=== PATIENT | male | born 2000 | race Caucasian/White ===

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

== ENCOUNTER 2019-04-18 21:16 | Emergency (ER) | payer MEDICAID ==
[~2019-04-18] VITALS: Ht 185.4 cm; Wt 90.9 kg
[~2019-04-18 21:16] MED LIST changes: +CEPH-571 PO; -HYDR-4353 PO
[2019-04-18] MEDS ORDERED: cyclobenzaprine 10mg tablet PO ONE (21:50)
[2019-04-18] MEDS ORDERED: naproxen 500mg tablet PO ONE (21:50)
[2019-04-18] MEDS ORDERED: HYDROcodone/acetaminophen 10/325mg tab PO ONE (21:50)
--- NOTE | 2019-04-19 00:43 | NUR ---
report called to thi cortez
--- NOTE | 2019-04-19 00:53 | NUR ---
[facility] HAS AN ETA OF 20 MINUTES FOR TRANSPORT TO [facility]
[2019-04-19 01:05] VITALS: BP 133/73
== END 2019-04-19 01:05 | disposition short-term general hospital (02) ==
LOC: ER 21:17
DX: S39.92XA Unspecified injury of lower back, initial encounter (principal); S89.92XA Unspecified injury of left lower leg, initial encounter; S89.91XA Unspecified injury of right lower leg, initial encounter; R20.2 Paresthesia of skin; G43.909 Migraine, unspecified, not intractable, without status migrainosus; Z90.89 Acquired absence of other organs; Z98.890 Other specified postprocedural states; Z79.899 Other long term (current) drug therapy; X50.1XXA Overexertion from prolonged static or awkward postures, initial encounter; Y93.89 Activity, other specified; Y92.89 Other specified places as the place of occurrence of the external cause; Y99.8 Other external cause status
CPT/HCPCS: 72131; 99291

== ENCOUNTER 2022-04-09 21:30 | Emergency (ER) | payer MEDICAID ==
[~2022-04-09] VITALS: Ht 185.4 cm; Wt 106.5 kg
[~2022-04-09 21:30] MED LIST changes: -CEPH500C5 PO
--- NOTE | 2022-04-09 21:50 | NUR ---
DR ESPINAL AWARE OF PT'S CASE.
[2022-04-10] MEDS ORDERED: ibuprofen tablet 400 MG TABLET PO ONE (00:20)
[2022-04-10] MEDS ORDERED: orphenadrine citrate 60mg/2ml inj. IM ONE (00:20)
[2022-04-10] MEDS ORDERED: oxyCODONE/APAP 5-325mg tablet PO ONE (00:20)
[2022-04-10] MEDS ORDERED: HYDR-3973 PO (01:26)
[2022-04-10 01:33] VITALS: BP 139/85
== END 2022-04-10 01:35 | disposition home or self-care (01) ==
LOC: ER 21:30
DX: S20.229A Contusion of unspecified back wall of thorax, initial encounter (principal); G43.909 Migraine, unspecified, not intractable, without status migrainosus; Z87.81 Personal history of (healed) traumatic fracture; Z79.899 Other long term (current) drug therapy; Z79.1 Long term (current) use of non-steroidal anti-inflammatories (NSAID); Z79.2 Long term (current) use of antibiotics; Z98.890 Other specified postprocedural states; V98.8XXA Other specified transport accidents, initial encounter; Y93.89 Activity, other specified; Y92.89 Other specified places as the place of occurrence of the external cause; Y99.8 Other external cause status
CPT/HCPCS: 72131; 96372; 99284; J2360

== ENCOUNTER 2022-08-02 21:13 | Emergency (ER) | payer MEDICAID ==
[~2022-08-02] VITALS: Ht 185.4 cm; Wt 95.5 kg
[2022-08-02 22:04] VITALS: BP 142/95
[2022-08-03] MEDS ORDERED: LIDOcaine 1% 30ml preserv. free vial SQ STA (02:14)
[2022-08-03] MEDS ORDERED: TETanus/Pertussis (Acell)/Diphther VAC/PF (Tdap-Adult) 0.5ml syringe IMVAC ONE (02:15)
[2022-08-03] MEDS ORDERED: amox tr/potassium clavulanate 875/125mg TAB PO ONE (02:15)
[2022-08-03] MEDS ORDERED: AMOX-117 PO (02:17)
[2022-08-03] MEDS ORDERED: bacitracin 15gm ointment TP ONE (03:40)
== END 2022-08-03 03:58 | disposition home or self-care (01) ==
LOC: ER 21:14
DX: S61.411A Laceration without foreign body of right hand, initial encounter (principal); G43.909 Migraine, unspecified, not intractable, without status migrainosus; Z87.81 Personal history of (healed) traumatic fracture; Z79.899 Other long term (current) drug therapy; W45.8XXA Other foreign body or object entering through skin, initial encounter; Y93.89 Activity, other specified; Y92.89 Other specified places as the place of occurrence of the external cause; Y99.8 Other external cause status
CPT/HCPCS: 12002; 73130; 90471; 90715; 99283; J7030; A6449

== ENCOUNTER 2025-03-29 15:03 | Emergency (ER) | payer OTHER, MEDICAID ==
[~2025-03-29] VITALS: Ht 185.4 cm; Wt 109.1 kg
[2025-03-29 15:05] VITALS: BP 147/82; PULSE 93; RESP 16; O2SAT 100
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
--- NOTE | 2025-03-29 17:01 | RADIOLOGY REPORT ---
CLINICAL INDICATION: injury right TECHNIQUE: AP and lateral views of the right lower leg were performed. DI TIB/FIB 2 VWS Comparison: None FINDINGS/IMPRESSION: No acute fracture of the right tibia or fibula.
--- NOTE | 2025-03-29 17:06 | RADIOLOGY REPORT ---
CLINICAL INDICATION: injury right TECHNIQUE: Right DI ANKLE, COMPLETE(3VW MIN) Comparison: None FINDINGS/IMPRESSION: : There is no evidence of acute fracture or dislocation. Diffuse soft-tissue edema.
[2025-03-29 17:24] VITALS: TEMP 99
== END 2025-03-29 17:25 | disposition home or self-care (01) ==
LOC: ER 15:03
DX: S89.81XA Other specified injuries of right lower leg, initial encounter (principal); G43.909 Migraine, unspecified, not intractable, without status migrainosus; Z79.899 Other long term (current) drug therapy; X58.XXXA Exposure to other specified factors, initial encounter; Y93.89 Activity, other specified; Y92.89 Other specified places as the place of occurrence of the external cause; Y99.8 Other external cause status
CPT/HCPCS: 73590; 73610; 99284; A6258; A6449